=== PATIENT | female | born 1955 | race Caucasian/White ===

== ENCOUNTER 2021-03-28 13:04 | Outpatient (CLI) | payer MEDICARE, OTHER ==
[~2021-03-28 13:04] MED LIST: Iopamidol 370 76% 100 ML VIAL ONE
[2021-03-28 13:56] LABS: Estimated GFR-MDRD - POC Greater than 90
== END 2021-03-28 13:05 | disposition home or self-care (01) ==
LOC: BICCT 13:04
PROVIDERS: ATTEND Physician Assistant Medical
DX: K21.00 Gastro-esophageal reflux disease with esophagitis, without bleeding (principal); R10.10 Upper abdominal pain, unspecified; D18.03 Hemangioma of intra-abdominal structures; R91.1 Solitary pulmonary nodule; R91.8 Other nonspecific abnormal finding of lung field; M47.816 Spondylosis without myelopathy or radiculopathy, lumbar region; M89.9 Disorder of bone, unspecified
CPT/HCPCS: 74160; 82565